=== PATIENT | male | born 1940 | race Caucasian/White ===

== ENCOUNTER → 2020-03-17 | Outpatient (CLI) | payer MEDICARE, OTHER ==
[~2020-03-17] MED LIST: ASPIRIN EC81 MG PO; ATORVASTATIN CA20 MG PO; BACTRIM DS TAB1 EACH PO; HYDROCODON-ACE1 EAC4 PO; JANUVIA50 MG PO; LISINOPRIL10 MG PO; LYRICA300 MG PO; STIOLTO RESPIMAT4 GM INH; VENTOLIN HFA 66.7 GM INH
== END ==
LOC: KOH-I 03-10 13:00
DX: N18.9 Chronic kidney disease, unspecified (principal)
CPT/HCPCS: 36415; 76775; 80053; 81001; 82043; 82570; 84156

== ENCOUNTER 2020-03-24 11:30 | Inpatient (IN) | payer MEDICARE, OTHER ==
[~2020-03-24] VITALS: Ht 172.7 cm; Wt 66.2 kg
[~2020-03-24 11:30] MED LIST changes: -JANUVIA50 MG PO; -LYRICA300 MG PO; -VENTOLIN HFA 66.7 GM INH
[2020-03-24 13:13] LABS: HEMOGLOBIN 8.9 gm/dl (14.0-17.5); RED BLOOD COUNT 2.74 M/UL (4.20-5.50); WHITE BLOOD COUNT 8.2 K/UL (4.5-11.0)
[2020-03-24 13:34] LABS: BUN/CREATININE RATIO 23 (0-10)
[2020-03-24] MEDS ORDERED: JANUVIA50 MG PO (16:49)
[2020-03-24] MEDS ORDERED: LYRICA300 MG PO (16:50)
[2020-03-24] MEDS ORDERED: VENTOLIN HFA 66.7 GM INH (16:51)
[2020-03-25 05:07] LABS: HEMOGLOBIN 8.6 gm/dl (14.0-17.5); RED BLOOD COUNT 2.54 M/UL (4.20-5.50)
[2020-03-25] MEDS ORDERED: ATORVASTATIN CA20 MG PO (15:01)
[2020-03-25] MEDS ORDERED: ASPIRIN EC81 MG PO (15:01)
--- NOTE | 2020-03-27 18:43 | NUR ---
BEDSIDE ROUNDING COMPLETED AT THIS TIME. PATIENT SITTING ON SIDE OF BED WITH DINNER TRAY AND HAS JUST VOMITED PRIOR TO SHIFT CHANGE SAYS HE FEELS NAUSEOUS. BETITO RODRIGUES RN SAYS HE DOESNT HAVE ANYTHING FOR NAUSEA AT THIS TIME. LIFEVEST RN ENTERED IN ROOM WE WAS GIVING REPORT AT THIS TIME TO APPLY LIFE VEST TO PATIENT. UPON ENTERING ROOM IV IN LEFT INNER FOREARM WAS PULLED OUT ACCIDENTALLY BY PATIENT. IV WAS D/C'D AT THIS TIME. WILL CONTINUE TO MONITOR PATIENT.
--- NOTE | 2020-03-27 19:26 | NUR ---
AT APPROX. 1926 I SEEN ON MONITOR SCREEN THAT PATIENT WAS NOT SHOWING UP CONNECTED. HOSPICE MASSAGE THERAPIST, YUE, WAS DOING ROUNDS AND I ASKED HER TO GO TO HIM NEXT TO HOOK HIM BACK ON MONITOR. HOSPICE MASSAGE THERAPIST GOT TO ROOM AND STAFF ASSIST BUTTON WAS PUSHED. I IMMEDIATELY WENT INTO ROOM TO ASSESS SITUATION. UPON ARRIVAL TO ROOM HOSPICE MASSAGE THERAPIST WAS SEEN HOLDING PATIENT UP FROM A SLUMPED POSITION AND PATIENT WAS BLUE AND UNRESPONSIVE. AT 1927 A CODE BLUE WAS CALLED- PATIENT WAS MOVED TO SUPINE POSITION AND PT WAS PUT ON BACK BOARD AND COMPRESSIONS WAS IMMEDIATELY STARTED. PLEASE SEE CODE BLUE SHEET FOR DETAILS FROM CODE. TIME OF WAS 1999. FAMILY WAS CONTACTED. TRAINING PROJECT MANAGER WAS CONTACTED AND SAID THERE WAS NO REASON FOR THEM TO COME. HOME WAS CONTACTED PER FAMILY REQUEST. [facility] WAS CONTACTED AT 2134. HOME LEFT WITH PATIENT AT 225.
== END 2020-03-27 20:00 | disposition expired | DRG 190 ==
LOC: ER1 11:30 → CDU 16:39 → PROG CARE 16:39 → CCU 16:39 → PROG CARE 03-25 17:09
PROVIDERS: Physician Assistant; Physician Assistant Medical; ADMIT Internal Medicine
PROC: 5A09357 Assistance with Respiratory Ventilation, Less than 24 Consecutive Hours, Continuous Positive Airway Pressure (ICD-10-PCS; 2020-03-24)
PROC: 3E033XZ Introduction of Vasopressor into Peripheral Vein, Percutaneous Approach (ICD-10-PCS; principal; 2020-03-27)
PROC: 0BH17EZ Insertion of Endotracheal Airway into Trachea, Via Natural or Artificial Opening (ICD-10-PCS; 2020-03-27)
DX: J44.0 Chronic obstructive pulmonary disease with (acute) lower respiratory infection (principal); J18.9 Pneumonia, unspecified organism; I50.23 Acute on chronic systolic (congestive) heart failure; J96.00 Acute respiratory failure, unspecified whether with hypoxia or hypercapnia; I13.0 Hypertensive heart and chronic kidney disease with heart failure and stage 1 through stage 4 chronic kidney disease, or unspecified chronic kidney disease; I24.8 Other forms of acute ischemic heart disease; F17.213 Nicotine dependence, cigarettes, with withdrawal; I46.9 Cardiac arrest, cause unspecified; J44.1 Chronic obstructive pulmonary disease with (acute) exacerbation; Z20.822 Contact with and (suspected) exposure to COVID-19; D64.9 Anemia, unspecified; I25.10 Atherosclerotic heart disease of native coronary artery without angina pectoris; G89.29 Other chronic pain; M54.9 Dorsalgia, unspecified; I25.5 Ischemic cardiomyopathy; I35.0 Nonrheumatic aortic (valve) stenosis; N18.30 Chronic kidney disease, stage 3 unspecified; D72.819 Decreased white blood cell count, unspecified; E11.22 Type 2 diabetes mellitus with diabetic chronic kidney disease; Z89.021 Acquired absence of right finger(s); Z79.84 Long term (current) use of oral hypoglycemic drugs; Z79.899 Other long term (current) drug therapy; Z95.1 Presence of aortocoronary bypass graft; Z83.3 Family history of diabetes mellitus; Z95.5 Presence of coronary angioplasty implant and graft; Z99.81 Dependence on supplemental oxygen
CPT/HCPCS: ECHO; 31500; 36415; 36600; 71045; 71046; 80048; 80053; 82550; 82553; 82803; 82962; 83605; 83735; 83874; 83880; 84439; 84443; 84484; 85025; 87040; 90471; 92950; 93005; 93306; 94002; 94640; 94660; 94664; 94760; 96372; 96374; 96375; 96376; 99285; J0456; J0696; J1100; J1940; J2270; J2930; J7030; U0002